=== PATIENT | female | born 1935 | race Caucasian/White ===

== ENCOUNTER → 2017-01-25 | Outpatient (CLI) | payer OTHER ==
[~2017-01-25] MED LIST: AMLODIPINE BESYL5 MG PO; ASPIRIN81 M2 PO; COZAAR 50 MG TA50 M2 PO
== END ==
LOC: RAD 12:57
DX: Z12.31 Encounter for screening mammogram for malignant neoplasm of breast (principal)

== ENCOUNTER → 2017-06-15 | Outpatient (CLI) | payer OTHER | LOC: ULTRA 08:20 | DX: N64.4 Mastodynia (principal) ==

== ENCOUNTER → 2018-01-29 | Outpatient (CLI) | payer OTHER | LOC: ULTRA 14:00 | DX: E04.2 Nontoxic multinodular goiter (principal); I10 Essential (primary) hypertension; Z95.1 Presence of aortocoronary bypass graft ==

== ENCOUNTER → 2018-01-30 | Outpatient (CLI) | payer OTHER | LOC: RAD 10:52 | DX: Z12.31 Encounter for screening mammogram for malignant neoplasm of breast (principal); I10 Essential (primary) hypertension ==

== ENCOUNTER → 2019-02-01 | Outpatient (CLI) | payer OTHER | LOC: BC 09:02 | DX: Z12.31 Encounter for screening mammogram for malignant neoplasm of breast (principal) ==

== ENCOUNTER → 2019-08-07 | Outpatient (CLI) | payer OTHER | LOC: SJCVC 11:25 | DX: I11.9 Hypertensive heart disease without heart failure (principal); I36.1 Nonrheumatic tricuspid (valve) insufficiency; E78.5 Hyperlipidemia, unspecified; Z87.74 Personal history of (corrected) congenital malformations of heart and circulatory system ==

== ENCOUNTER → 2020-02-04 | Outpatient (CLI) | payer OTHER | LOC: BC 07:52 | PROVIDERS: ATTEND Obstetrics & Gynecology | DX: Z12.31 Encounter for screening mammogram for malignant neoplasm of breast (principal) ==

== ENCOUNTER → 2021-02-11 | Outpatient (CLI) | payer OTHER | LOC: BC 09:56 | PROVIDERS: ATTEND Family Medicine | DX: Z12.31 Encounter for screening mammogram for malignant neoplasm of breast (principal) ==